=== PATIENT | female | born 1975 | race Caucasian/White ===

== ENCOUNTER 2017-06-02 15:57 | Emergency (ER) | payer OTHER ==
[~2017-06-02] VITALS: Ht 162.6 cm; Wt 76.4 kg
[~2017-06-02 15:57] MED LIST: BCPILLS PO
[2017-06-02 16:01] VITALS: BP 123/69; PULSE 102; TEMP 36.7; O2SAT 94; Ht 162.6 cm; Wt 76.4 kg
[2017-06-02] MEDS ORDERED: THYR60TA10 PO (16:20)
[2017-06-02] MEDS ORDERED: MULT-506 PO (16:21)
[2017-06-02] MEDS ORDERED: IBUPROFEN 600 MG TAB PO STA (16:28)
[2017-06-02] MEDS ORDERED: DIPHTHERIA/TETANUS/PERTUSSIS 0.5 ML SYR/VIAL IM. ONE (16:30)
[2017-06-02] MEDS ORDERED: XYLOCAINE 1%/SOD BICARB 20 ML VIAL INFIL ONE (16:30)
--- NOTE | 2017-06-02 16:48 | DIAGNOSTIC IMAGING REPORT ---
RIGHT HAND MIN 3 VIEWS ROUTINE CLINICAL HISTORY: R hand injury and lac Right trauma. Pain. COMPARISON: None. DISCUSSION: The bones and joint spaces appear intact. There is no evidence of fracture, dislocation or bony disease. There is no evidence for soft tissue swelling. IMPRESSION: Negative study. The above report was generated using voice recognition software. It may contain grammatical, syntax or spelling errors. Electronically signed by: Barry Haynes M.D. 06/02/2017 4:47 PM Dictated Date/Time: 06/02/2017 4:47 PM
[2017-06-02] MEDS ORDERED: MISCCAP80 PO (17:23)
[2017-06-02] MEDS ORDERED: HYDR-5688 PO (18:43)
[2017-06-02] MEDS ORDERED: NORCO 5/325MG HOME PACK PO ONE (19:30)
--- NOTE | 2017-06-03 21:00 | EMERGENCY ROOM VISIT NOTE ---
ED Visit Note First contact with patient: 16:14 Chief Complaint: I cut my left hand and I think I might of broken my fingers. History of Present Illness: Ms. Soto is a 41-year-old white female who ambulates into the ED accompanied by male friend complaining of a laceration on the posterior aspect of the left hand and left finger pain. Patient reports less than an hour ago she was walking her dog. She reports she was leaving the dog park and the dog tried to sprint away and her hand was struck on the lock on the dog park's gait. Currently patient describes her left hand pain as a throbbing sensation. The pain is located over the second and third metacarpals in the webspace between the metacarpals. She rates her discomfort 6/10. Her pain is nonradiating. Her pain worsens with palpation of the metacarpals and MCP joints in movement of the MCP joints. She has not identified any alleviating factors related to the pain. She has not taken medications for pain prior to arrival at the hospital. Associated with her pain she reports she is having paresthesias in the index and middle fingers. She denies other hand pain, other finger pain, wrist pain, other finger/hand weakness/numbness/tingling. Review of Systems: As noted above in history of present illness. Past Medical History: Hypertension, hypothyroidism, unspecified stomach disorder. Current Medications: Probiotic, multivitamins, thyroid 60. Allergies to Medications: Coumadin. Social History: Patient is currently employed; she feels safe in her home environment; she denies tobacco use and admits to alcohol use. Tetanus Immunization Status: Patient reports greater than 10 years. Physical Examination: Vital Signs: Date Time Temp Pulse Resp B/P (MAP) Pulse Ox O2 Delivery O2 Flow Rate FiO2 06/02/17 16:01 36.7 102 18 123/69 94 Room Air GENERAL: 41-year-old female in moderate distress due to pain, nontoxic-appearing , afebrile and hemodynamically stable. NEUROLOGICAL: Awake, alert and oriented to person, place and time. Answering questions appropriately and following commands. SKIN: Warm, dry and pink. Left Hand: Over the posterior aspect of the hand patient has a full-thickness laceration extending from the web states between the index and middle finger superiorly to the mid metacarpal area. No active bleeding. LEFT HAND: Soft tissue injury as noted above under SKIN. No gross bony deformity but moderate swelling in the webspace between the fingers. She does have full range of motion in flexion and extension of the MCP joint but this does cause a significant amount of pain. Throughout the hand this fingers were warm and pink and capillary refill is brisk. She was able to distinguish light sensations through all dermatomes of the index and middle finger. ED Course: Patient is assessed as noted above. Patient's medication list was reviewed. Left Hand X-Rays: Were read by myself and the radiologist showing no acute fractures or dislocations. Wound Repair: Complexity: Basic Verbal consent was obtained after the risks and benefits were explained. The skin was prepped with betadine and a sterile field set. Wound edges of the wound was anesthetized with 4.8 ml buffered 1% lidocaine. The wound was explored for foreign bodies and none found. Copious irrigation was performed using sterile saline. With direct pressure the bleeding subsided. Debridement was not performed. The wound edges were approximated using 5-0 Ethilon with 9 simple interrupted sutures. Hemostasis and excellent approximation was achieved. Antibacterial ointment and a sterile dressing applied. No complications and the patient tolerated the procedure well. The index and middle finger were splinted to to gather and then in a metal splint to immobilize the entire fingers in the MCP joints. Patient was educated about tonight's findings and instructed on his treatment plan; he verbalizes understanding and agreement with this plan. Clinical Impression: Laceration of the left hand. Disposition: Patient discharged home in stable condition; prior to departure he was reassessed and subjectively reported she was pain-free. Plan: Comfort measures, wound care, and signs of infection were discussed with the patient. Patient was placed on a sliding pain scale including Rayle; her name was checked on the state database and no red flags were noted and she was educated on narcotic precautions. Patient was encouraged to follow-up with PCP or return to the ED for signs of infection and/or suture removal in 10-12 days.
--- NOTE | 2017-06-05 11:45 | EDITING REQUIRED CODING QUERY ---
LENGTH OF LACERATION : 1975 To promote full compliance with coding requirements relating to patient care, physician participation is requested in all cases of medical records coder uncertainty. Please assist us with the question(s) below: Please document the length of the (HAND) laceration. Please type the length in cm within the parenthesis ( ) below. HAND laceration is (4.2) cm. Thank you Lizzette Quevedo
== END 2017-06-02 19:05 | disposition home or self-care (01) ==
LOC: C.EDB 15:58 → C.EDD 19:05
DX: S61.412A Laceration without foreign body of left hand, initial encounter (principal); W45.8XXA Other foreign body or object entering through skin, initial encounter; Z79.01 Long term (current) use of anticoagulants; I10 Essential (primary) hypertension; E03.9 Hypothyroidism, unspecified